=== PATIENT | male | born 1965 | race Caucasian/White ===

== ENCOUNTER 2020-04-16 16:08 | Emergency (ER) | payer OTHER, MEDICAID, SELFPAY ==
[~2020-04-16] VITALS: Ht 177.8 cm; Wt 113.4 kg
[2020-04-16 16:20] VITALS: BP 111/60
--- NOTE | 2020-04-16 16:20 | NUR ---
54/M presents ambulatory to ED, requesting for covid-19 testing due to pt being denied dialysis today. Pt stated recent travel from [place] (04/12-04/15) and possible indirect exposure to covid-19. Pt denies fever/chills, cough/congestion, CP/SOB, abd pain, diarrhea. Pt awake and alert, skin normal color warm and dry, rr even and unlabored. Hx ESRD (TThS, last dialysis 04/11), HTN, HLD, A.fib, cardiac stent
--- NOTE | 2020-04-16 17:00 | NUR ---
LOKI OMALLEY AT BEDSIDE
--- NOTE | 2020-04-16 17:08 | NUR ---
PT AMBULATED TO ER BED 10
--- NOTE | 2020-04-16 17:26 | NUR ---
READ ABG RESULTS BACK TO DR. OMALLEY AND DR. RICK. WAS TOLD THEY ARE ACCEPTING SAMPLE VBG.
[2020-04-16 18:08] LABS: BASOPHILS # (AUTO) 0.2 K/uL (0.00-0.22); BASOPHILS % (AUTO) 3.7 % (0.0-2.0); EOSINOPHILS # (AUTO) 0.1 K/uL (0-0.4); EOSINOPHILS % (AUTO) 2.5 % (0.0-4.0); HEMATOCRIT 23.2 % (36-52); HEMOGLOBIN 7.4 g/dL (12.0-18.0); LYMPHOCYTES # (AUTO) 0.6 K/uL (2.0-11.5); LYMPHOCYTES % (AUTO) 10.9 % (20.5-51.1); MEAN CORPUSCULAR HEMOGLOBIN 32 pg (27-31); MEAN CORPUSCULAR HGB CONC 32 g/dL (33-37); MONOCYTES # (AUTO) 0.3 K/uL (0.8-1.0); NEUTROPHILS # (AUTO) 4.1 K/uL (1.8-7.7); NEUTROPHILS % (AUTO) 76.9 % (42.2-75.2); PLATELET COUNT (AUTO) 77 K/uL (140-450); RED BLOOD CELL COUNT(AUTO) 2.29 MIL/uL (4.20-6.10); RED CELL DISTRIBUTION WIDTH 21.8 % (11.6-13.7); WHITE BLOOD COUNT (AUTO) 5.4 K/uL (4.8-10.8)
[2020-04-16 18:12] LABS: PROTHROMBIN TIME 11.3 secs (10.8-13.4)
[2020-04-16 18:29] LABS: ALBUMIN 2.9 g/dL (3.4-5.0); ANION GAP 18.9 (8-16); POTASSIUM 4.9 mmol/L (3.5-5.1); TOTAL BILIRUBIN 1.9 mg/dL (0.0-1.0)
--- NOTE | 2020-04-16 18:30 | NUR ---
PT CURRENTLY UNABLE TO URINATE AT THIS TIME.
[2020-04-16 18:35] LABS: CREATININE 12.2 mg/dL (0.6-1.3)
[2020-04-16] MEDS ORDERED: NACL 0.9% 3,000 ML IV ONE (18:45)
[2020-04-16 18:49] LABS: RSV NEGATIVE (NEGATIVE)
[2020-04-16 18:56] LABS: LACTATE DEHYDROGENASE 185 U/L (85-227)
--- NOTE | 2020-04-16 19:03 | NUR ---
VERIFYING NS ORDER WITH LOKI OMALLEY, WILL DOUBLE CHECK BEFORE ADMINISTERING
[2020-04-16] MEDS ORDERED: NACL 0.9% 1,000 ML IV ONE (19:05)
[2020-04-16 19:06] LABS: C-REACTIVE PROTEIN QUANT 4.9 mg/dL (0.0-0.9)
--- NOTE | 2020-04-16 19:06 | NUR ---
PT STILL UNABLE TO URINATE AT THIS TIME, AWARE
--- NOTE | 2020-04-16 19:13 | NUR ---
report given to chantale villarreal for transfer of care.
--- NOTE | 2020-04-16 19:14 | NUR ---
change of shift report recieved from Cheng PITTS. assumed pt care at this time.
--- NOTE | 2020-04-16 19:30 | NUR ---
PT STARTED ON NS 100CC/HR ON RT FA IV SITE.
--- NOTE | 2020-04-16 20:07 | NUR ---
PT STATES STILL NO URGENCY TO URINATE. " GIVE ME MORE TIME, I DO NOT HAVE THE FEELING YET".
--- NOTE | 2020-04-16 21:00 | NUR ---
pt provided with bedside commode for bowel movement. unable to urinate and provide sample. refused straight catheterization.
--- NOTE | 2020-04-16 21:15 | NUR ---
RT FA IV SITE INFILTRATED. REMOVED. NEW IV STARTED ON RT AC 20G. TOLERATED WELL.
--- NOTE | 2020-04-16 22:00 | NUR ---
OBSERVED BASE OF RT FOOT WOUND.
--- NOTE | 2020-04-16 22:04 | NUR ---
Thad mark in [facility] - 04/16/20 at 2213 by CHAU PT MOVED TO BED 9
--- NOTE | 2020-04-16 22:45 | NUR ---
[facility] AT BEDSIDE
--- NOTE | 2020-04-16 23:03 | NUR ---
REPORT GIVEN TO [facility].
--- NOTE | 2020-04-16 23:15 | NUR ---
CALLED TO GIVE REPORT TO KIRAN CRAIG RN. TRANSFER OF CARE ASSUMED AT THIS TIME.
--- NOTE | 2020-04-16 23:18 | NUR ---
PT TAKEN BY [facility] TRANSPORT TO [facility] ROOM [id number]
--- NOTE | 2020-04-16 23:18 | NUR ---
Patient to be transferred to [facility]. Is being transferred due to R/O COVID. Receiving facility has accepting physician and available space. ER physician has signed transfer form. Patient or responsible libertarian has agreed to transfer and signed form. Patient belongings inventoried and will be sent with patient. Copy of nursing notes, lab reports, EKG, Physicians Orders and X-rays to be sent with patient. Report called to KIRAN PITTS at receiving facility. [facility] ambulance service is en route ETA is <30 mins.
[2020-04-16 23:33] VITALS: BP 132/71
--- NOTE | 2020-04-19 04:32 | NUR ---
LATE ENTRY-- RECEIVED A POSTIVE BLOOD CULTURE GRAM POSITIVE COCCI. PT WAS TRANSFERRED TO [facility]. CALL MADE TO GISSELLE SOLIMAN AT [facility]. WILL FAX OVER FINAL REPORT WHEN RECEVIED.
== END 2020-04-16 23:18 | disposition short-term general hospital (02) ==
LOC: MED 16:08 → EEVIPCON 16:08 → MED 23:18
DX: N19 Unspecified kidney failure (principal); Z20.828 Contact with and (suspected) exposure to other viral communicable diseases; I48.91 Unspecified atrial fibrillation
CPT/HCPCS: 36415; 36600; 71045; 80053; 82550; 82728; 82803; 83605; 83615; 83880; 84484; 85025; 85379; 85384; 85610; 85730; 86140; 87040; 87420; 87804; 93005; 99285; C9803; J7030; Q0092; U0003